=== PATIENT | male | born 1985 | race Caucasian/White ===

== ENCOUNTER 2021-06-18 10:18 | Inpatient (IN) | payer OTHER ==
[~2021-06-18] VITALS: Ht 170.2 cm; Wt 77.0 kg
[2021-06-18 12:41] LABS: COVID AG,FIA SOURCE NASOPHARYNGEAL
[2021-06-18 12:45] LABS: BASOPHILS % (AUTO) 0.3 % (0.0-2.0); EOSINOPHILS % (AUTO) 0.4 % (1.0-6.0); HEMATOCRIT 44.8 % (41-53); HEMOGLOBIN 15.2 g/dL (13.5-17.5); LYMPHOCYTES # (AUTO) 0.8 K/uL (1.0-4.8); LYMPHOCYTES % (AUTO) 9.4 % (22.0-44.0); MEAN CORPUSCULAR HEMOGLOBIN 31.2 pg (26.0-34.0); MEAN CORPUSCULAR VOLUME 92 fL (80-100); MONOCYTES # (AUTO) 0.5 K/uL (0.1-1.0); MONOCYTES % (AUTO) 5.9 % (2.0-9.0); NEUTROPHILS # (AUTO) 7.1 K/uL (1.8-7.7); PLATELET COUNT (AUTO) 361 K/uL (150-450); RED BLOOD CELL COUNT(AUTO) 4.88 MIL/uL (4.50-5.90); RED CELL DISTRIBUTION WIDTH 12.8 % (11.5-14.5)
[2021-06-18 12:54] LABS: ANION GAP 4 mmol/L (8-16); CALCIUM, TOTAL 9.4 mg/dL (8.8-10.5); CARBON DIOXIDE 33 mmol/L (22-29); CHLORIDE 102 mmol/L (98-107); CREATININE 0.87 mg/dL (0.60-1.30); GLOMERULAR FILTR. RATE CALC > 60 mL/min (>60); GLUCOSE,RANDOM 112 mg/dL (70-110); POTASSIUM 4.7 mmol/L (3.5-5.1); SODIUM SERUM 139 mmol/L (136-145); UREA NITROGEN, BLOOD 11 mg/dL (7-18)
[2021-06-18 13:00] LABS: ALANINE AMINOTRANSFERASE 29 U/L (12-78); ALBUMIN 3.8 g/dL (3.4-5.0); ALKALINE PHOSPHATASE 70 U/L (46-116); ASPARTATE AMINOTRANSFERASE 17 U/L (15-37); BILIRUBIN,TOTAL 0.3 mg/dL (0.1-1.0); TOTAL PROTEIN, SERUM 8.4 g/dL (6.4-8.2)
[2021-06-18 15:27] VITALS: BP 133/88
[2021-06-18] MEDS ORDERED: ONDANSETRON HCL 4 MG/2 ML VIAL IVP PRN ×2 (15:30→16:00)
[2021-06-18] MEDS ORDERED: 0.9% SODIUM CHLORIDE 10 ML SYRINGE IVP PRN (15:30)
[2021-06-18] MEDS ORDERED: ACETAMINOPHEN 325 MG TABLET PO PRN ×2 (15:30→16:00)
[2021-06-18] MEDS ORDERED: PROMETHAZINE HCL 25 MG TABLET PO PRN (16:00)
[2021-06-18] MEDS ORDERED: MAGNESIUM HYDROXIDE SUSPENSION 30 ML UDCUP PO PRN (16:00)
[2021-06-18] MEDS ORDERED: ALBUTEROL SULFATE 2.5 MG/0.5 ML NEB SOLUTION NEB PRN (16:00)
[2021-06-18] MEDS ORDERED: IBUPROFEN 600 MG TABLET PO PRN (16:00)
[2021-06-18] MEDS ORDERED: DICYCLOMINE HCL 10 MG CAPSULE PO PRN (16:00)
[2021-06-18] MEDS ORDERED: MAG HYDROX/AL HYDROX/SIMETH ES 30 ML SUSPENSION UDCUP PO PRN (16:00)
[2021-06-18] MEDS: SODIUM CHLORIDE 0.45% 1,000 ML IV SCH (16:00)
[2021-06-18] MEDS ORDERED: HydrOXYzine PAMOATE 50 MG CAPSULE PO PRN (16:00)
[2021-06-18] MEDS ORDERED: BACLOFEN 10 MG TABLET PO PRN (16:00)
[2021-06-18] MEDS ORDERED: LORazepam 1 MG TABLET PO PRN (16:00)
[2021-06-18] MEDS ORDERED: IPRATROPIUM BROMIDE 0.5 MG/2.5 ML NEB SOLUTION NEB PRN (16:00)
[2021-06-18] MEDS ORDERED: CloNIDine HCL 0.1 MG TABLET PO PRN (16:00)
[2021-06-18] MEDS ORDERED: LOPERAMIDE HCL 2 MG/15 ML SUSPENSION UDCUP PO PRN (16:00)
[2021-06-18] MEDS ORDERED: BISACODYL 10 MG RECTAL RECTAL SUPPOSITORY PR PRN (16:00)
[2021-06-18] MEDS: HEPARIN SODIUM,PORCINE 5,000 UNITS/ML VIAL SQ SCH ×2 (16:11→23:27)
[2021-06-18 16:30] LABS: AMPHET/METH SCREEN,URINE POSITIVE (NEGATIVE); BARBITURATE SCREEN, URINE NEGATIVE (NEGATIVE); BENZODIAZEPINES SCREEN,URINE NEGATIVE (NEGATIVE); CANNABINOID SCREEN,URINE POSITIVE (NEGATIVE); COCAINE SCREEN,URINE NEGATIVE (NEGATIVE); METHADONE SCREEN, URINE NEGATIVE (NEGATIVE); OPIATE SCREEN,URINE NEGATIVE (NEGATIVE)
[2021-06-18 16:36] LABS: PHENCYCLIDINE SCREEN,URINE NEGATIVE (NEGATIVE)
[2021-06-18 19:26] VITALS: BP 140/79
[2021-06-18] MEDS: ACETAMINOPHEN 325 MG TABLET PO PRN (19:35)
[2021-06-18] MEDS: ZOLPIDEM TARTRATE 5 MG TABLET PO PRN (20:41)
[2021-06-18] MEDS: TraZODone HCL 50 MG TABLET PO PRN (23:30)
[2021-06-19 05:18] VITALS: BP 135/87
[2021-06-19] MEDS: SODIUM CHLORIDE 0.45% 1,000 ML IV SCH ×2 (07:23→18:40)
[2021-06-19] MEDS: HEPARIN SODIUM,PORCINE 5,000 UNITS/ML VIAL SQ SCH ×3 (07:26→23:10)
[2021-06-19 08:57] VITALS: BP 134/84
[2021-06-19] MEDS: ACETAMINOPHEN 325 MG TABLET PO PRN ×2 (10:19→16:54)
[2021-06-19 19:27] VITALS: BP 130/72
[2021-06-19] MEDS: TraZODone HCL 50 MG TABLET PO PRN (20:51)
[2021-06-20 04:59] VITALS: BP 130/90
[2021-06-20] MEDS: SODIUM CHLORIDE 0.45% 1,000 ML IV SCH ×2 (08:00→19:57)
[2021-06-20 08:29] VITALS: BP 143/77
[2021-06-20] MEDS: HEPARIN SODIUM,PORCINE 5,000 UNITS/ML VIAL SQ SCH ×3 (08:33→23:03)
[2021-06-20 11:24] VITALS: BP 125/76
[2021-06-20] MEDS: ACETAMINOPHEN 325 MG TABLET PO PRN (18:14)
[2021-06-20] MEDS: ZOLPIDEM TARTRATE 5 MG TABLET PO PRN (19:56)
[2021-06-20 21:14] VITALS: BP 102/50
[2021-06-21] MEDS: TraZODone HCL 50 MG TABLET PO PRN (02:16)
[2021-06-21 05:02] VITALS: BP 145/88
== END 2021-06-21 05:55 | DRG 897 ==
LOC: EMS 10:18 → 6S 14:28
PROVIDERS: ADMIT Hospitalist; ATTEND Hospitalist
DX: F11.13 Opioid abuse with withdrawal (principal); F15.10 Other stimulant abuse, uncomplicated; Z20.822 Contact with and (suspected) exposure to COVID-19
CPT/HCPCS: 80053; 85025; 99285; G0480; J1644